=== PATIENT | male | born 1975 | race Caucasian/White ===

== ENCOUNTER → 2017-04-05 | Outpatient (CLI) | payer OTHER ==
[~2017-04-05] VITALS: Ht 177.8 cm; Wt 94.1 kg
[2017-04-05 15:09] VITALS: BP 142/85; PULSE 71; Ht 177.8 cm; Wt 94.1 kg
== END | disposition home or self-care (01) ==
LOC: C.NEUR 14:20
PROVIDERS: ATTEND Internal Medicine Pulmonary Disease
DX: G47.30 Sleep apnea, unspecified (principal)

== ENCOUNTER → 2017-11-07 | Outpatient (CLI) | payer BC ==
[~2017-11-07] MED LIST: CHOL100027 PO; DOXY100T PO; GLUCTAB7 PO; ONDA4TAB10 SL
== END | disposition home or self-care (01) ==
LOC: C.LABBFT 09:25
PROVIDERS: ATTEND Nurse Practitioner
DX: T14.8XXA Other injury of unspecified body region, initial encounter (principal); W57.XXXA Bitten or stung by nonvenomous insect and other nonvenomous arthropods, initial encounter

== ENCOUNTER 2017-11-08 20:53 | Emergency (ER) | payer BC ==
[~2017-11-08] VITALS: Ht 177.8 cm; Wt 83.9 kg
[2017-11-08 20:57] VITALS: TEMP 37.8; Ht 177.8 cm; Wt 83.9 kg
[2017-11-08] MEDS ORDERED: IBUPROFEN 600 MG TAB PO STA (21:30)
[2017-11-08] MEDS ORDERED: ONDANSETRON INJ 2 MG/ML 2 ML VIAL IV STA (21:38)
[2017-11-08] MEDS ORDERED: SODIUM CHLORIDE 0.9% 1000ML 1,000 ML IV STA (21:38)
[2017-11-08 22:10] LABS: INFLUENZA B ANTIGEN Neg for Influ B (NEG)
[2017-11-08] MEDS ORDERED: GLUCTAB7 PO (22:10)
[2017-11-08] MEDS ORDERED: DOXY100T PO (22:10)
[2017-11-08] MEDS ORDERED: CHOL100027 PO (22:10)
[2017-11-08 22:18] LABS: BASO % 0.2 %; BASO ABS # 0.02 K/uL (0-0.2); EOS % 0.2 %; EOS ABS # 0.02 K/uL (0-0.5); HEMATOCRIT 43.3 % (42-52); HEMOGLOBIN 15.8 g/dL (14.0-18.0); IG# 0.01 K/uL (0.00-0.02); LYMPH % 19.5 %; MEAN CORPUSCULAR HEMOGLOBIN 30.3 pg (25-34); MEAN CORPUSCULAR HGB CONC 36.5 g/dl (32-36); MEAN PLATELET VOLUME 8.4 fL (7.4-10.4); MONO ABS # 1.57 K/uL (0.11-0.59); NEUT ABS # 5.42 K/uL (1.4-6.5); PLATELET COUNT 173 K/uL (130-400); RED CELL DISTRIBUTION WIDTH CV 12.5 % (11.5-14.5); RED CELL DISTRIBUTION WIDTH SD 37.5 fL (36.4-46.3); WHITE BLOOD COUNT 8.74 K/uL (4.8-10.8)
[2017-11-08 22:31] LABS: ALBUMIN 3.7 gm/dl (3.4-5.0); ALKALINE PHOSPHATASE 62 U/L (45-117); ALT/SGPT 45 U/L (12-78); AST/SGOT 22 U/L (15-37); BLOOD UREA NITROGEN 10 mg/dl (7-18); CALCIUM 8.6 mg/dl (8.5-10.1); CARBON DIOXIDE 27 mmol/L (21-32); CREATININE 0.95 mg/dl (0.60-1.40); GLUCOSE 93 mg/dl (70-99); POTASSIUM 3.5 mmol/L (3.5-5.1); SODIUM 135 mmol/L (136-145); TOTAL PROTEIN 7.5 gm/dl (6.4-8.2)
[2017-11-08] MEDS ORDERED: ONDA4TAB10 SL (22:59)
[2017-11-08] MEDS ORDERED: ONDANSETRON HOME PACK 4MG OD TAB PO ONE (23:00)
[2017-11-08 23:10] VITALS: BP 147/71; PULSE 69; O2SAT 97
--- NOTE | 2017-11-09 00:56 | EMERGENCY ROOM VISIT NOTE ---
History Report prepared by Camryn: Anthony Kelly Under the Supervision of: Dr. Sumeet Lind M.D. First contact with patient: 21:02 Chief Complaint: DIARRHEA Stated Complaint: DIARRHEA, VOMIT, HEADACHE, STIFF NECK DIAG W/LYME History of Present Illness The patient is a 42 year old male who presents to the Emergency Room with complaints of a persistent illness that started 3 days ago. He states that he initially started with headaches and stiffness in his neck. He says that he had pain on the back of his head, but the head discomfort has subsided somewhat to the point that his head pain is only mild now. He adds that he does have some stiffness in his lower back. The patient states he started having episodes of diarrhea and vomiting 3 days ago, with some abdominal cramping. He adds that his temperature has gone as high as 102.5. He says that he has been taking Ibuprofen. The patient notes that his heart skips a beat when his fever gets really high. He says that due to his symptoms, he went to a lab clinic yesterday and got his blood drawn, and he tested positive for Lyme disease. 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 The patient says that he is still having persistent vomiting and diarrhea, and given that the Lyme test is not 100% accurate, he states that he wanted to come here to rule-out anything else. He notes that he has not seen his family doctor for his illness. He was put on Doxycycline, and took his first dose last night. The patient states that he was not previously on any antibiotics. He also notes no recent foreign travel, or any sick contacts with diarrhea or vomiting. The patient denies any joint pain, sore throat, rashes, cough, or urinary symptoms. The patient states that he had no symptoms last week before the onset of this illness. Source of History: patient Onset: 3 days ago Position: other (global) Symptom Intensity: tested positive for Lyme yesterday Quality: other (illness) Timing: other (persistent) Associated Symptoms: + fevers, + headache, + neck pain, + nausea, + vomiting , + abdominal pain, + back pain, + diarrhea, No sorethroat, No cough, No urinary symptoms, No rash Note: Associated symptoms: Denies any joint pain. Review of Systems See HPI for pertinent positives & negatives. A total of 10 systems reviewed and were otherwise negative. Past Medical & Surgical Medical Problems: (1) Lyme disease Family History Lyme disease Meningitis Social History Smoking Status: Never Smoker Smokeless Tobacco Use: No Drug Use: none Housing Status: lives with family Occupation Status: employed Current/Historical Medications Scheduled Cholecalciferol (Vitamin D 1000 Unit), 1,000 INTER.UNIT PO DAILY Doxycycline Hyclate (Doxycycline Hyclate), 100 MG PO BID Svycixzcyga-Hnniucrboff-Zuq C- (Glucosamine Chondroitin), 1 TAB PO DAILY Ondasetron Odt (Zofran Odt), 4 MG SL Q6H Allergies Coded Allergies: No Known Allergies (Unverified , 11/08/17) Physical Exam Vital Signs Date Time Temp Pulse Resp B/P (MAP) Pulse Ox O2 Delivery O2 Flow Rate FiO2 11/08/17 23:10 69 16 147/71 97 11/08/17 20:57 37.8 94 20 131/87 96 Room Air Physical Exam Constitutional: Vital signs reviewed. Eyes: Pupils are equal round reactive to light. Conjunctiva are noninjected. ENT: Pharynx is clear without erythema or exudate. Mucous membranes are moist. Neck supple without meningeal signs. Respiratory: Clear to auscultation bilaterally. Breath sounds are equal bilaterally. Cardiovascular: Regular rate and rhythm. No rubs or gallops. GI: Soft, nondistended and nontender. Bowel sounds are present. Musculoskeletal: No peripheral edema. No lower extremity tenderness. Integumentary: No cyanosis. No rash to the trunk or extremities. Neurological: The patient is awake and alert. Cranial nerves II-XII are intact. Motor is 5 out of 5 all extremities. Sensation is intact to light touch all extremities. Normal speech. No pronator drift. No limb ataxia. Negative Kernig or Brudzinski's sign. Psychiatric: Normal affect. Medical Decision & Procedures Laboratory Results 11/08/17 21:45 Red Blood Count 5.22, Mean Corpuscular Volume 83.0, Mean Corpuscular Hemoglobin 30.3, Mean Corpuscular Hemoglobin Concent 36.5, Mean Platelet Volume 8.4, Neutrophils (%) (Auto) 62.0, Lymphocytes (%) (Auto) 19.5, Monocytes (%) (Auto) 18.0, Eosinophils (%) (Auto) 0.2, Basophils (%) (Auto) 0.2, Neutrophils # (Auto ) 5.42, Lymphocytes # (Auto) 1.70, Monocytes # (Auto) 1.57, Eosinophils # (Auto ) 0.02, Basophils # (Auto) 0.02 11/08/17 21:45 Test 11/08/17 00:00 11/08/17 21:45 11/08/17 21:57 Influenza Type A Antigen Neg for Influ A (NEG) Influenza Type B Antigen Neg for Influ B (NEG) White Blood Count 8.74 K/uL (4.8-10.8) Red Blood Count 5.22 M/uL (4.7-6.1) Hemoglobin 15.8 g/dL (14.0-18.0) Hematocrit 43.3 % (42-52) Mean Corpuscular Volume 83.0 fL (80-100) Mean Corpuscular Hemoglobin 30.3 pg (25-34) Mean Corpuscular Hemoglobin Concent 36.5 g/dl (32-36) Platelet Count 173 K/uL (130-400) Mean Platelet Volume 8.4 fL (7.4-10.4) Neutrophils (%) (Auto) 62.0 % Lymphocytes (%) (Auto) 19.5 % Monocytes (%) (Auto) 18.0 % Eosinophils (%) (Auto) 0.2 % Basophils (%) (Auto) 0.2 % Neutrophils # (Auto) 5.42 K/uL (1.4-6.5) Lymphocytes # (Auto) 1.70 K/uL (1.2-3.4) Monocytes # (Auto) 1.57 K/uL (0.11-0.59) Eosinophils # (Auto) 0.02 K/uL (0-0.5) Basophils # (Auto) 0.02 K/uL (0-0.2) RDW Standard Deviation 37.5 fL (36.4-46.3) RDW Coefficient of Variation 12.5 % (11.5-14.5) Immature Granulocyte % (Auto) 0.1 % Immature Granulocyte # (Auto) 0.01 K/uL (0.00-0.02) Anion Gap 6.0 mmol/L (3-11) Est Creatinine Clear Calc Drug Dose 106.7 ml/min Estimated GFR () 115.6 Estimated GFR (Non- 99.7 BUN/Creatinine Ratio 10.7 (10-20) Calcium Level 8.6 mg/dl (8.5-10.1) Total Bilirubin 0.6 mg/dl (0.2-1) Direct Bilirubin < 0.1 mg/dl (0-0.2) Aspartate Amino Transf (AST/SGOT) 22 U/L (15-37) Alanine Aminotransferase (ALT/SGPT) 45 U/L (12-78) Alkaline Phosphatase 62 U/L (45-117) Total Protein 7.5 gm/dl (6.4-8.2) Albumin 3.7 gm/dl (3.4-5.0) Bedside Troponin I < 0.030 ng/ml (0-0.045) Laboratory results as reviewed by me. Medications Administered Medications (Trade) Dose Ordered Sig/Scott Route Start Time Stop Time Status Last Admin Dose Admin Ibuprofen (Motrin Tab) 600 mg NOW STAT PO 11/08/17 21:30 11/08/17 21:31 DC 11/08/17 22:08 600 MG Sodium Chloride 1,000 ml @ 999 mls/hr Q1H1M STAT IV 11/08/17 21:38 11/08/17 22:38 DC 11/08/17 22:08 999 MLS/HR Ondansetron HCl (Zofran Inj) 4 mg NOW STAT IV 11/08/17 21:38 11/08/17 21:39 DC 11/08/17 22:08 4 MG Ondansetron HCl (ZOFRAN ODT 4MG Home Pack) 1 homepack UD ONCE PO 11/08/17 23:00 11/08/17 23:01 DC 11/08/17 23:08 1 HOMEPACK ECG Per My Interpretation Indication: palpitations Rate (beats per minute): 72 Rhythm: normal sinus Findings: other (no evidence of heart block, no PVCs or PACs, no QT prolongation) ED Course 2106: The patient was evaluated in room C7. A complete history and physical exam was performed. 2129: Motrin Tab 600 mg PO. 2137: Zofran Inj 4 mg IV, NSS 1000 ml @ 999 mls/hr IV. 5: Upon reevaluation, the patient does not have a headache right now and says that he feels better. He agrees that an LP is not indicated. I discussed heydi's findings with him. He verbalized agreement of the treatment plan. He was discharged home. 2300: Zofran ODT 4MG Home Pack 1 homepack PO. Medical Decision This is a 42-year-old male presents with vomiting, diarrhea, fever and headache. Differential cysts includes Lyme disease, Lyme meningitis, Lyme carditis, dehydration, electrolyte abnormality, foodborne illness. I did perform a limited focused review of portions of the patient's old chart on the electronic medical record. The patient had a positive Lyme IgM yesterday, and a negative IgG. I did evaluate the patient as noted above. Patient is presenting with fevers, headache and neck stiffness and back stiffness. On examination he has no meningeal signs. He is able to move his neck without any difficulty or pain. He does not have any neurologic deficits and has a negative Kernig and Brudzinski sign. He also states that his headache is significantly better at this time. I did talk to him about possible lumbar puncture as well as risks and benefits. IV access was established. Rapid flu testing was negative. I did order and review the patient's blood work as noted in the electronic medical record. His white blood cell count is not elevated. Sodium is 135 but otherwise his electrolytes are unremarkable. I did treat the patient with normal saline IV, Zofran IV and Motrin tablets. I did reassess patient. He states he is feeling better. He has no significant headache at this time. He agreed that lumbar puncture was not indicated. I did discuss the test results with him and his . I did recommend close follow-up with his doctor and discuss return instructions with him. He was discharged in good condition and will continue his doxycycline as prescribed. He is given a prescription for Zofran for nausea and vomiting. Medication Reconcilliation Current Medication List: was personally reviewed by me Blood Pressure Screening Patient's blood pressure: Elevated blood pressure Blood pressure disposition: Referred to PCP Impression Primary Impression: Lyme disease Additional Impressions: Dehydration Vomiting Diarrhea Scribe Attestation The scribe's documentation has been prepared under my direct and personally reviewed by me in its entirety. I confirm that the note above accurately reflects all work, treatment, procedures, and medical decision making performed by me. Departure Information Dispostion Home / Self-Care Prescriptions Ondasetron Odt (ZOFRAN ODT) 4 Mg Tab 4 MG SL Q6H for Nausea, #6 TAB Prov: Sumeet Lind M.D. 11/08/17 Referrals Phoenix Erickson M.D. (PCP) Patient Instructions My [facility], Vomit Diarrhea Self Care Additional Instructions You have been examined and treated today on an emergency basis only. This is not a substitute for, or an effort to provide, complete comprehensive medical care. It is impossible to recognize and treat all injuries or illnesses in a single emergency department visit. It is therefore important that you follow up closely with your physician. Call as soon as possible for an appointment. Return for worsening symptoms or if you develop rash, severe headache or any other concerning symptoms. Problem Qualifiers Additional Impressions: Vomiting Vomiting type: unspecified Vomiting Intractability: non-intractable Nausea presence: with nausea Qualified Codes: R11.2 - Nausea with vomiting, unspecified Diarrhea Diarrhea type: unspecified type Qualified Codes: R19.7 - Diarrhea, unspecified
== END 2017-11-08 23:14 | disposition home or self-care (01) ==
LOC: C.EDB 20:56 → C.EDC 23:14
DX: A69.20 Lyme disease, unspecified (principal); E86.0 Dehydration; R11.2 Nausea with vomiting, unspecified; R19.7 Diarrhea, unspecified

== ENCOUNTER → 2018-01-21 | Outpatient (CLI) | payer BC | END | disposition home or self-care (01) | LOC: C.LABBFT 10:19 | PROVIDERS: ATTEND Internal Medicine | DX: Z13.6 Encounter for screening for cardiovascular disorders (principal) ==